=== PATIENT | male | born 1945 | race African-American/Black ===

== ENCOUNTER 2017-07-17 14:06 | Inpatient (IN) | payer MEDICARE, MEDICAID ==
[~2017-07-17] VITALS: Ht 180.3 cm; Wt 98.9 kg
[2017-07-17] MEDS ORDERED: IPRATROPIUM BROMIDE (0.02%) 0.5MG/2.5ML NEB HHN STA (18:17)
[2017-07-17] MEDS ORDERED: SODIUM CHLORIDE 0.9% 1,000 ML IV ONE ×2 (18:17→20:19)
[2017-07-17] MEDS ORDERED: ALBUTEROL (0.083%) 2.5MG/3ML NEB HHN STA (18:17)
[2017-07-17] MEDS ORDERED: ACETAMINOPHEN 325MG TABLET PO STA (18:17)
[2017-07-17 18:52] LABS: BASOPHILS % 0.4 % (0.0-2.0); EOSINOPHILS % 0.2 % (0.0-5.0); HEMATOCRIT. 40.1 % (42.0-52.0); HEMOGLOBIN. 13.5 g/dL (14.0-18.0); LYMPHOCYTES % 13.9 % (20.0-50.0); MEAN CORPUSCULAR HEMOGLOBIN 29.4 pg (28.0-32.0); MEAN CORPUSCULAR VOLUME 87.3 fL (80.0-94.0); MEAN PLATELET VOLUME 8.1 fl (7.4-10.4); MONOCYTES % 13.7 % (2.0-8.0); NEUTROPHILS % 71.8 % (40.0-76.0); PLATELET 199 x1000/uL (130-400); RED CELL DISTRIBUTION WIDTH 13.4 % (11.6-14.6)
[2017-07-17 18:58] LABS: INR 1.1; PROTHROMBIN TIME 11.5 sec (9.4-11.6)
[2017-07-17 19:07] LABS: CARBON DIOXIDE 29 mEq/L (21-32); CHLORIDE 98 mEq/L (98-107); TROPONIN I < 0.02 ng/mL (0.00-0.04)
[2017-07-17 19:33] LABS: CREATINE KINASE 844 IU/L (39-308)
[2017-07-17 20:13] LABS: CLARITY URINE CLEAR (CLEAR); COLOR URINE YELLOW (YELLOW); KETONES URINE 2+ (NEGATIVE); LEUKOCYTE ESTERASE URINE NEGATIVE (NEGATIVE); NITRITE URINE NEGATIVE (NEGATIVE); OCCULT BLOOD URINE 1+ (NEGATIVE); PROTEIN URINE 1+ (NEGATIVE); SPECIFIC GRAVITY URINE 1.022 (1.005-1.030); UROBILINOGEN URINE 0.2 E.U./dL (0.2-1.0)
[2017-07-17] MEDS ORDERED: ASPIRIN 325MG TABLET PO ONE (21:00)
[2017-07-17] MEDS: ASPIRIN 81MG TABLET PO SCH (23:45)
[2017-07-17] MEDS ORDERED: HYDROCODONE/ACETAMINOPHEN 5/325MG TABLET PO PRN (23:45)
[2017-07-17] MEDS ORDERED: POTASSIUM CHLORIDE 10MEQ TABLET SR PO SCH (23:45)
[2017-07-18] VITALS (8 sets, daily range): BP systolic 108–142; BP diastolic 55–72
[2017-07-18] MEDS ORDERED: LEVOFLOXACIN 500MG PREMIX 100 ML IV SCH
[2017-07-18] MEDS ORDERED: ENOXAPARIN 30MG/0.3ML SYR SUBCUT SCH
[2017-07-18] MEDS: PANTOPRAZOLE 40MG DR TABLET PO SCH ×3 (00:58→20:53)
[2017-07-18] MEDS: ACETAMINOPHEN 325MG TABLET PO PRN ×2 (05:14→16:46)
[2017-07-18] MEDS: LEVOFLOXACIN 500MG PREMIX 100 ML IV SCH (05:14)
[2017-07-18] MEDS: GUAIFENESIN-DM 200MG-20MG/10ML UDC PO PRN ×2 (05:14→16:46)
[2017-07-18] MEDS: LOSARTAN POTASSIUM 50 MG TABLET PO SCH ×3 (09:00→20:53)
[2017-07-18] MEDS: ENOXAPARIN 30MG/0.3ML SYR SUBCUT SCH ×2 (09:00→20:54)
[2017-07-18] MEDS: ASPIRIN 81MG TABLET PO SCH ×2 (09:00→16:46)
[2017-07-18 09:26] LABS: *AMPHETAMINES SCREEN URINE NEGATIVE (NEGATIVE); *BARBITURATES SCREEN URINE NEGATIVE (NEGATIVE); *BENZODIAZEPINES SCREEN URINE NEGATIVE (NEGATIVE); *COCAINE SCREEN URINE NEGATIVE (NEGATIVE); CANNABINOID URINE SCREEN NEGATIVE (NEGATIVE); METHADONE URINE SCREEN NEGATIVE (NEGATIVE); OPIATES URINE SCREEN NEGATIVE (NEGATIVE); PHENCYCLIDINE URINE SCREEN NEGATIVE (NEGATIVE)
[2017-07-18 10:10] LABS: TROPONIN I 0.02 ng/mL (0.00-0.04)
[2017-07-18] MEDS ORDERED: IPRATROPIUM/ALBUTEROL 0.5-3(2.5)MG/3ML NEB HHN NR (16:15)
[2017-07-18] MEDS: IPRATROPIUM/ALBUTEROL 0.5-3(2.5)MG/3ML NEB HHN SCH (20:13)
[2017-07-18] MEDS: GUAIFENESIN 600MG ER TABLET PO SCH (20:54)
[2017-07-19] VITALS: BP 119/67
[2017-07-19] MEDS: IPRATROPIUM/ALBUTEROL 0.5-3(2.5)MG/3ML NEB HHN SCH ×3 (01:03→15:27)
[2017-07-19] MEDS: LEVOFLOXACIN 500MG PREMIX 100 ML IV SCH (05:12)
[2017-07-19 05:40] VITALS: BP 119/50
[2017-07-19] MEDS: PANTOPRAZOLE 40MG DR TABLET PO SCH (06:31)
[2017-07-19 07:37] LABS: HEMATOCRIT. 35.2 % (42.0-52.0); HEMOGLOBIN. 12.3 g/dL (14.0-18.0); MEAN CORPUSCULAR HEMOGLOBIN 30.2 pg (28.0-32.0); MEAN CORPUSCULAR VOLUME 86.4 fL (80.0-94.0); PLATELET 167 x1000/uL (130-400); RED BLOOD CELL COUNT 4.07 mill/uL (4.7-6.1); RED CELL DISTRIBUTION WIDTH 13.1 % (11.6-14.6)
[2017-07-19 08:00] VITALS: BP 131/57
[2017-07-19] MEDS: LOSARTAN POTASSIUM 50 MG TABLET PO SCH (08:38)
[2017-07-19] MEDS: GUAIFENESIN 600MG ER TABLET PO SCH (08:38)
[2017-07-19] MEDS: ENOXAPARIN 30MG/0.3ML SYR SUBCUT SCH (08:39)
[2017-07-19 14:42] VITALS: BP 118/61
[2017-07-19 16:04] LABS: PLATELET ESTIMATE NORMAL
== END 2017-07-19 17:30 | disposition home or self-care (01) | DRG 871 ==
LOC: ER 16:00 → INTOOBSV 20:59 → OBSVTOIN 20:59 → 6WST 20:59 → EDBEDREQTM 21:01 → EDBEDREQ 21:01 → EDBEDREQSVC 21:01 → ENRESERV 22:27 → 6WST 07-18 03:39
PROVIDERS: ADMIT Internal Medicine; ATTEND Internal Medicine
DX: A41.9 Sepsis, unspecified organism (principal); J18.9 Pneumonia, unspecified organism; I63.9 Cerebral infarction, unspecified; E86.0 Dehydration; J20.9 Acute bronchitis, unspecified; R29.6 Repeated falls
CPT/HCPCS: 36415; 70450; 70551; 71010; 80053; 80061; 80305; 81001; 82550; 83605; 83690; 83880; 84484; 85007; 85025; 85027; 85610; 87040; 87070; 87086; 87804; 92610; 93005; 93880; 93970; 94640; 94664; 96360; 96361; 97161; 97166; 99291; J1650; J1956; J7030; J7040; J7611; J7620